=== PATIENT | male | born 1990 | race Caucasian/White ===

== ENCOUNTER 2017-07-25 16:10 | Emergency (ER) | payer MEDICAID, OTHER ==
[~2017-07-25] VITALS: Ht 177.8 cm; Wt 75.0 kg
[~2017-07-25 16:10] MED LIST: CLON-528 PO; NO HOME MEDS
[2017-07-25] MEDS ORDERED: ONDA4TAB9 SL (16:48)
[2017-07-25] MEDS ORDERED: DIPH-423 PO ×2 (16:48→18:55)
[2017-07-25] MEDS ORDERED: LOPE-144 PO ×2 (16:48→18:55)
[2017-07-25] MEDS ORDERED: NICO1PAT36 TOP (16:52)
[2017-07-25 17:00] VITALS: BP 129/72
== END 2017-07-25 17:03 | disposition home or self-care (01) ==
LOC: ER 16:11
DX: Z00.00 Encounter for general adult medical examination without abnormal findings (principal); F17.200 Nicotine dependence, unspecified, uncomplicated; F11.10 Opioid abuse, uncomplicated
CPT/HCPCS: 99283

== ENCOUNTER 2018-01-10 13:24 | Emergency (ER) | payer MEDICAID, OTHER ==
[~2018-01-10] VITALS: Ht 175.3 cm; Wt 66.7 kg
[~2018-01-10 13:24] MED LIST changes: +DIPH-423 PO; +LOPE-144 PO; +NICO1PAT36 TOP
[2018-01-10 14:24] VITALS: BP 121/73
[2018-01-10] MEDS ORDERED: CLIN150C2 PO (15:34)
== END 2018-01-10 15:40 | disposition home or self-care (01) ==
LOC: ER 13:25
DX: S90.822A Blister (nonthermal), left foot, initial encounter (principal); S90.821A Blister (nonthermal), right foot, initial encounter; K04.7 Periapical abscess without sinus; F17.200 Nicotine dependence, unspecified, uncomplicated; F15.90 Other stimulant use, unspecified, uncomplicated; F11.90 Opioid use, unspecified, uncomplicated; Z56.0 Unemployment, unspecified; Z98.890 Other specified postprocedural states; Z79.899 Other long term (current) drug therapy; X58.XXXA Exposure to other specified factors, initial encounter; Y93.01 Activity, walking, marching and hiking; Y92.89 Other specified places as the place of occurrence of the external cause; Y99.8 Other external cause status
CPT/HCPCS: 99283

== ENCOUNTER 2022-03-20 17:00 | Emergency (ER) | payer MEDICAID ==
[~2022-03-20] VITALS: Ht 177.8 cm; Wt 79.5 kg
[2022-03-20 17:04] VITALS: BP 108/81
[2022-03-20] MEDS ORDERED: NAPR-56 PO (19:18)
[2022-03-20] MEDS ORDERED: CYCL-1 PO (19:18)
== END 2022-03-20 19:20 | disposition home or self-care (01) ==
LOC: ER 17:01
DX: M54.31 Sciatica, right side (principal); M47.26 Other spondylosis with radiculopathy, lumbar region; F15.10 Other stimulant abuse, uncomplicated; F11.10 Opioid abuse, uncomplicated; Z56.0 Unemployment, unspecified; Z79.899 Other long term (current) drug therapy
CPT/HCPCS: 72100; 99283

== ENCOUNTER 2023-01-04 21:34 | Emergency (ER) | payer MEDICAID ==
[~2023-01-04] VITALS: Ht 175.3 cm; Wt 77.3 kg
[~2023-01-04 21:34] MED LIST changes: +CYCL-1 PO
[2023-01-04 22:11] VITALS: BP 116/69
[2023-01-04] MEDS ORDERED: ibuprofen tablet 400 MG TABLET PO ONE (23:50)
[2023-01-04] MEDS ORDERED: loperamide 2mg capsule PO ONE (23:50)
[2023-01-04] MEDS ORDERED: diazepam 5mg tablet PO ONE (23:50)
== END 2023-01-05 00:04 | disposition home or self-care (01) ==
LOC: ER 21:35
DX: F11.93 Opioid use, unspecified with withdrawal (principal); F15.90 Other stimulant use, unspecified, uncomplicated; Z88.6 Allergy status to analgesic agent; Z56.0 Unemployment, unspecified
CPT/HCPCS: 99284

== ENCOUNTER 2023-02-01 20:16 | Emergency (ER) | payer MEDICAID ==
[~2023-02-01] VITALS: Ht 175.3 cm; Wt 71.6 kg
[2023-02-01 20:55] VITALS: BP 147/84; PULSE 105; RESP 18; TEMP 98.2; O2SAT 97
[2023-02-01] MEDS ORDERED: LIDOcaine 1% 30ml preserv. free vial IJ STA (22:48)
== END 2023-02-02 00:35 | disposition home or self-care (01) ==
LOC: ER 20:17
DX: S61.411A Laceration without foreign body of right hand, initial encounter (principal); F15.90 Other stimulant use, unspecified, uncomplicated; Z88.6 Allergy status to analgesic agent; Z79.899 Other long term (current) drug therapy; W45.8XXA Other foreign body or object entering through skin, initial encounter; Y93.89 Activity, other specified; Y92.89 Other specified places as the place of occurrence of the external cause; Y99.8 Other external cause status
CPT/HCPCS: 12002; 99282; A6258; A6449

== ENCOUNTER 2023-07-18 07:08 | Emergency (ER) | payer MEDICAID ==
[~2023-07-18] VITALS: Ht 175.3 cm; Wt 80.5 kg
[2023-07-18 07:12] VITALS: BP 153/102; PULSE 67; RESP 16; TEMP 98; O2SAT 100
[2023-07-18] MEDS ORDERED: AMOX-580 PO (07:39)
== END 2023-07-18 07:54 ==
LOC: ER 07:09
DX: S60.417A Abrasion of left little finger, initial encounter (principal); S30.810A Abrasion of lower back and pelvis, initial encounter; X58.XXXA Exposure to other specified factors, initial encounter; Y93.89 Activity, other specified; Y92.89 Other specified places as the place of occurrence of the external cause; Y99.8 Other external cause status
CPT/HCPCS: 99283